=== PATIENT | male | born 1975 | race Caucasian/White ===

== ENCOUNTER 2020-02-13 11:52 | Emergency (ER) | payer BC ==
--- NOTE | 2020-02-13 12:09 | PDOC ---
History of Present Illness - General Chief Complaint: Chest Pain Stated Complaint: CHEST PAIN Time Seen by Provider: 02/13/20 12:08 History Source: Patient Exam Limitations: No Limitations - History of Present Illness Initial Comments: 02/13/20 12:08 HPI 44 YOM with history of paroxysmal Afib (not on AC any longer, previously on BB), presenting with intermittent chest pain, a/w dizziness/lightheadedness, SOB, fatigue x 4 days; this morning he woke up with substernal sharp chest pain, occasionally radiating to left arm across his chest , numbness/tingling to his fingers. he states yesterday he had fleeting episodes of intermittent anterior chest pain all across and random places. no exertional component, no radiation of symptoms. pt states the symptoms started this weekend on Monday when he went for heavy exercise. denies alleviating or exacerbating factors intermittent chest pain last about 1 minute, self resolves. had routine work done with his primary yesterday, - neg covid testing. ekg nsr. lyme test pending. has cannon crewmember appt tomorrow - cannot remember name. Denies fever, chills, palpitation, N, V, D, abdominal pain, bladder and bowel problems, focal weakness/paresthesias, leg swelling/pain, rash. No sick contacts or travel. No new changes in medications. No suspicious food intake no trauma. Allergies: None Past Medical History/PSH: as above Social history: Lives with family. +recreational cannibis use. Meds: none Family history: +HOCM in family/paternal side. +TX in father in his 50s. Review of systems Constitutional: no fevers or chills. +fatigue HEENT: no headache. No congestion. No visual/hearing disturbances. No sore throat, no ear pain, no eye pain/swelling or blurry vision. +dizziness. CVS: no syncope. no palpitations. +chest pain. Resp: +SOB. no cough. no wheezing or hemoptysis. Gastrointestinal: no abdominal pain, nausea, vomiting, diarrhea. Genitourinary: no urinary sx, hematuria. MUSCULOSKELETAL: No joint pain and swelling. No neck or back pain. SKIN: no redness or skin changes, no discharge, no rash. No wounds. Hematologic: no easy bruising/bleeding. NEUROLOGIC: No headache, LOC or altered mental status. No weakness, numbness or tingling. Psych: no anxiety or depression Allergic/Immunologic: no allergies All other systems reviewed and negative, or as documented in HPI. Physical exam General: Well appearing, awake and alert, NAD. HEENT: NCAT, PERRL, EOMI, clear conjunctiva, anicteric, moist mucus membranes, clear oropharynx, no oral lesions.. Neck: neck supple, FROM Resp: CTAB, normal and even respirations, no respiratory distress CVS: RRR, no murmurs, 2+ peripheral pulses throughout, no peripheral edema Abdomen: soft, NTND, no rebound or guarding. Back: nontender, normal inspection and ROM MSK: no edema, CHAVEZ x4, ROM intact. No clubbing or cyanosis. normal bulk and tone. Extremities: no calf tenderness Neuro: alert, oriented appropriately; no focal neurologic deficits Psych: Calm and cooperative Skin: warm and well perfused, cap refill <2 sec, normal color, no rash or skin discoloration. 02/13/20 12:50 02/13/20 15:41 Past History - Medical History Allergies/Adverse Reactions: Allergies Allergy/AdvReac Type Severity Reaction Status Date / Time Penicillins Allergy Mild Verified 02/13/20 11:53 Home Medications: Ambulatory Orders NK [No Known Home Medication] 02/13/20 Cardiac Disorders: Yes (HCM,AFIB) COPD: No - Psycho-Social/Smoking History Smoking History: Never smoked Have you smoked in the past 12 months: No Information on smoking cessation initiated: No - Substance Abuse Hx (Audit-C & DAST Scrn) How often the patient has a drink containing alcohol: Never Score: In Men: 4 or > Positive; In Women: 3 or > Positive: 0 Screen Result (Pos requires Nsg. Audit-10AR): Negative *Physical Exam - Vital Signs Last Vital Signs Temp Pulse Resp BP Pulse Ox 98.7 F 68 20 140/98 100 02/13/20 11:53 02/13/20 14:38 02/13/20 14:38 02/13/20 14:38 02/13/20 14:38 Heart Score/ECG Review - History History: Slightly suspicious - Electrocardiogram EKG: Non specific repolarization disturbance - Age Age: </= 45 - Risk Factors Risk Factors Heart Score: Yes Positive family hx of cardiac disease Based on the list above the patient has:: 1-2 risk factors - Troponin Troponin: </= normal limit - Score Heart Score - Total: 2 #1 ECG reviewed & interpreted by me at: 11:50 General ECG Interpretation: Sinus Rhythm, Normal Rate, Normal Intervals 02/13/20 15:40 EKG normal sinus rhythm 66 bpm, no interval abnormalities, narrow QRS, ST and T wave segments and morphology normal. early repolarization appearance. 02/13/20 15:45 ED Treatment Course - LABORATORY CBC & Chemistry Diagram: 02/13/20 12:45 02/13/20 12:45 - ADDITIONAL ORDERS Additional order review: Laboratory Results 02/13/20 02/13/20 12:45 12:45 Sodium 138 Potassium 4.2 Chloride 103 Carbon Dioxide 26 Anion Gap 9 BUN 16.0 Creatinine 0.8 Est GFR (CKD-EPI)AfAm 125.92 Est GFR (CKD-EPI)NonAf 108.65 Random Glucose 104 Calcium 9.2 Magnesium 2.1 Total Bilirubin 0.6 AST 18 ALT 17 Alkaline Phosphatase 91 Troponin I < 0.03 Total Protein 7.1 Albumin 4.3 02/13/20 12:45 RBC 4.79 MCV 91.2 MCHC 34.7 RDW 13.0 MPV 8.6 Neutrophils % 61.8 Lymphocytes % 26.9 Monocytes % 8.3 Eosinophils % 1.5 Basophils % 1.5 - RADIOLOGY Radiology Studies Ordered: Category Date Time Status CHEST PA & LAT [RAD] Stat Radiology 02/13/20 12:08 Completed - Medications Given in the ED: ED Medications Discontinued Medications Generic Name Dose Route Start Last Admin Trade Name Freq PRN Reason Stop Dose Admin Sodium Chloride 1,000 mls @ 1,000 mls/hr 02/13/20 12:17 02/13/20 12:45 Normal Saline - IV 02/13/20 13:16 1,000 mls/hr ASDIR STA Administration Medical Decision Making - Medical Decision Making 02/13/20 12:52 Vital Signs Temp Pulse Resp BP Pulse Ox 98.7 F 70 20 136/92 100 02/13/20 11:53 02/13/20 11:53 02/13/20 11:53 02/13/20 11:53 02/13/20 11:53 DDx chest pain: ACS, coronary vasospasm, NSTEMI, arrhythmia, unstable angina, PE, dissection, PUD, esophageal spasm, GERD, gastritis, costochondritis, pneumonia, pleurisy, pericarditis/myocarditis. dehydration, electrolyte/metabolic derangements. Considered but clinically doubt based on HPI and PE: Low suspicion for pulmonary embolism or dissection. PERC criteria neg, so low likelihood/suspicion for PE. no infectious sx covid 19 test neg from pmd office vitals wnl reassuring, HD appropriate. no respiratory distress, normal sats. EKG normal sinus rhythm 66 bpm, no interval abnormalities, narrow QRS, ST and T wave segments and morphology normal. early repolarization appearance. Chest pain HEART score 2 which denotes Low risk and probability for ACS, less than 1.7% risk for MACE at 4-6 wks no active cp, or sob cxr is clear, no ptx or pna or effusion, normal cardiac silhouette labs and lytes wnl. trop is neg, reassuring, as chest pain free, nontypical sx and has had these episodes x 4 days, last this morning within 6 hour window for rule out No evidence of ACS, pericarditis, myocarditis, pulmonary embolism, pneumothorax, pneumonia, Zoster, or esophageal perforation. Historically not abrupt in onset, tearing or ripping, pulses symmetric, no evidence of aortic dissection. pt to be discharged in stable condition. Patient and family made aware of cli nical impression, treatment recommendations and disposition plan, return precautions discussed (including but not limited to new or persistent/worsening symptoms, pain, fevers, or signs of infection, chest pain, respiratory distress, inability to tolerate oral intake, dehydration, syncope, or neurologic changes). Follow up with PMD and/or cannon crewmember specialist as recommended (tomorrow), follow up information provided, take medications as instructed for duration of time. continue with supportive care, avoid triggers and precipitants. All questions answered to patient's satisfaction and expressed understanding and comfort with this. At the time of discharge, the patient is alert, clinically improved, tolerating po and verbalizes understanding of instructions, satisfied with the care received and felt comfortable with the plan. Patient does not suffer from an acute life-threatening medical condition at this time and is safe for outpatient follow-up. 02/13/20 15:40 02/13/20 15:45 Discharge - Discharge Information Problems reviewed: Yes Clinical Impression/Diagnosis: Chest pain Qualifiers: Chest pain type: unspecified Qualified Code(s): R07.9 - Chest pain, unspecified Condition: Improved Disposition: HOME - Admission No - Follow up/Referral Referrals: Max Stanford MD [Primary Care Provider] - - Patient Discharge Instructions Patient Printed Discharge Instructions: DI for Chest Pain Additional Instructions: 1) Please follow-up with your primary care doctor in the next 1-2 days. Please call tomorrow for for any urgent issues. follow up with your cannon crewmember tomorrow as scheduled. 2) You were given a copy of the tests performed today. Please bring the results with you and review them with your primary care doctor. Your laboratory / imagin g results were normal, 3) If you have any worsening of symptoms or any other concerns please return to the ED immediately. Return if worsening symptoms including fevers, headache, vomiting, visual or hearing disturbances, abdominal pain, chest pain, shortness of breath, syncope, dehydration, inability to take things by mouth/vomiting, altered mental status, or worsening concerning symptoms. 4) Please continue taking your home medications as directed. avoid strenous activity, stay hydrated especially with exercise and the summer heat. Stay well hydrated and rest adequately. Make an appointment. If you cannot follow-up with your primary care doctor please return to the ED - Post Discharge Activity
[2020-02-13 12:12] VITALS: TEMP 98.7; BMI 22.8
[2020-02-13] MEDS ORDERED: SODIUM CHLORIDE 1,000 ML IV STA (12:17)
[2020-02-13 13:15] LABS: BASO % 1.5 % (0-2.0); EOS % 1.5 % (0-4.5); HEMATOCRIT 43.6 % (35.4-49); HEMOGLOBIN 15.1 GM/dl (11.7-16.9); LYMPH % 26.9 % (8-40); MCH 31.6 pg (25.7-33.7); MCHC 34.7 g/dl (32.0-35.9); MEAN CELL VOLUME 91.2 fl (80-96); MEAN PLT VOLUME 8.6 fl (7.5-11.1); MONO % 8.3 % (3.8-10.2); NEUT % 61.8 % (42.8-82.8); PLATELET COUNT 258 K/MM3 (134-434); RBC 4.79 M/mm3 (4.00-5.60); WHITE BLOOD COUNT 4.3 K/mm3 (4.0-10.8)
[2020-02-13 13:26] LABS: ALBUMIN 4.3 g/dl (3.4-5.0); BILIRUBIN,TOTAL 0.6 mg/dl (0.2-1); CALCIUM 9.2 mg/dl (8.5-10); CREATININE 0.8 mg/dl (0.55-1.3); MAGNESIUM 2.1 mg/dL (1.8-2.4); POTASSIUM 4.2 mmol/L (3.5-5.1); TOT PROT 7.1 g/dl (6.4-8.2)
[2020-02-13 14:39] VITALS: BP 140/98; PULSE 68
--- NOTE | 2020-02-14 13:15 | EKG ---
Test Reason : Blood Pressure : / mmHG Vent. Rate : 066 BPM Atrial Rate : 066 BPM P-R Int : 140 ms QRS Dur : 080 ms QT Int : 390 ms P-R-T Axes : 119 044 051 degrees QTc Int : 408 ms NORMAL SINUS RHYTHM MINIMAL VOLTAGE CRITERIA FOR LVH, MAY BE NORMAL VARIANT SEPTAL INFARCT , AGE UNDETERMINED ABNORMAL ECG NO PREVIOUS ECGS AVAILABLE Confirmed by ROGER STAPLETON MD ([id number]) on 02/14/2020 1:14:45 PM Referred By: NGA GRIDER Confirmed By:ROGER STAPLETON MD
== END 2020-02-13 14:44 | disposition home or self-care (01) ==
LOC: FER 11:52 → SUPCPDRO 11:52 → FER 14:44
PROC: 3E0337Z Introduction of Electrolytic and Water Balance Substance into Peripheral Vein, Percutaneous Approach (ICD-10-PCS; principal; 2020-02-13)
DX: R07.9 Chest pain, unspecified (principal)
CPT/HCPCS: 36415; 71046-TC-FY; 80053; 83735; 84484; 85025; 93005; 99285-25

== ENCOUNTER 2020-10-07 15:30 | Emergency (ER) | payer BC ==
[2020-10-07 15:39] VITALS: BP 129/80; PULSE 87; TEMP 99.9; BMI 23.6
[2020-10-07] MEDS ORDERED: ACETAMINOPHEN 1000 MG/100 ML VIAL (NON FORMULARY) IVPB ONE (16:23)
[2020-10-07] MEDS ORDERED: SODIUM CHLORIDE 1,000 ML IV STA ×2 (16:23→17:34)
[2020-10-07] MEDS ORDERED: KETOROLAC TROMETHAMINE 30 MG/1 ML VIAL IVPUSH ONE (16:23)
[2020-10-07 16:27] LABS: HEMATOCRIT 44.4 % (35.4-49); HEMOGLOBIN 14.5 GM/dl (11.7-16.9); LYMPH % 4.8 % (8-40); MCH 31.1 pg (25.7-33.7); MCHC 32.6 g/dl (32.0-35.9); MEAN CELL VOLUME 95.4 fl (80-96); MEAN PLT VOLUME 8.9 fl (7.5-11.1); MONO % 7.1 % (3.8-10.2); NEUT % 87.1 % (42.8-82.8); PLATELET COUNT 208 K/MM3 (134-434); RBC 4.65 M/mm3 (4.00-5.60); RDW 13.3 % (11.9-15.9); WHITE BLOOD COUNT 13.5 K/mm3 (4.0-10.8)
[2020-10-07 16:31] LABS: ALBUMIN 4.5 g/dl (3.4-5.0); BILIRUBIN,TOTAL 0.6 mg/dl (0.2-1); CALCIUM 8.9 mg/dl (8.5-10); CREATININE 0.8 mg/dl (0.55-1.3); POTASSIUM 3.9 mmol/L (3.5-5.1); TOT PROT 6.9 g/dl (6.4-8.2)
[2020-10-07] MEDS ORDERED: ACETAMINOPHEN INJECTION 100 ML IVPB ONE (16:31)
[2020-10-07] MEDS ORDERED: KETOROLAC TROMETHAMINE 30 MG/1 ML VIAL ONE (16:31)
[2020-10-07] MEDS ORDERED: IBUPROFEN 400 MG TABLET (FP) PO ONE ×2 (20:20→20:30)
== END 2020-10-07 20:47 | disposition home or self-care (01) ==
LOC: FER 15:30
PROC: 3E0337Z Introduction of Electrolytic and Water Balance Substance into Peripheral Vein, Percutaneous Approach (ICD-10-PCS; principal; 2020-10-07)
PROC: 3E033GC Introduction of Other Therapeutic Substance into Peripheral Vein, Percutaneous Approach (ICD-10-PCS; principal; 2020-10-07)
DX: S22.41XA Multiple fractures of ribs, right side, initial encounter for closed fracture (principal); S70.01XA Contusion of right hip, initial encounter; W22.8XXA Striking against or struck by other objects, initial encounter; Y93.23 Activity, snow (alpine) (downhill) skiing, snowboarding, sledding, tobogganing and snow tubing
CPT/HCPCS: 36415; 71101-TC-RT-FY; 73502-TC-RT-FY; 74177-TC; 80053; 83690; 85025; 99285-25; J0131; Q9967